=== PATIENT | female | born 1980 | race Caucasian/White ===

== ENCOUNTER 2021-03-25 17:00 | Emergency (ER) | payer OTHER, BC ==
[2021-03-25] MEDS ORDERED: Bacitracin Oint 1 GM U/D Packet TOP ONE (17:13)
[2021-03-25] MEDS ORDERED: Diphtheria,Pertussis(Acell),Tetanus Vaccine 0.5 ML Syringe IM ONE (17:13)
--- NOTE | 2021-03-25 17:16 | EDM.PDOC ---
ED HPI GENERAL MEDICAL PROBLEM - General Chief Complaint: Burn Stated Complaint: burn Time Seen by Provider: 03/25/21 17:50 Source of Information: Reports: Patient History Limitations: Reports: No Limitations - History of Present Illness INITIAL COMMENTS - FREE TEXT/NARRATIVE: 10x6cm chemical burn left inner forearm from [place]. Working at [employer] when this spilled onto patient's arm. Rinsed with water on site. - Related Data Allergies Allergy/AdvReac Type Severity Reaction Status Date / Time No Known Allergies Allergy Verified 03/25/21 17:16 Home Meds: Home Meds Multivitamin with Minerals [Multiple Vitamin] 1 cap PO DAILY 03/25/21 [History] Armour-3/DHA/Epa/Fish Oil [Fish Oil 1,000 mg Softgel] 1 cap PO DAILY 03/25/21 [History] Vit C/Dietary Supplement No.18 [Red Wine Extract Plus] 1 cap PO DAILY 03/25/21 [History] Past Medical History - Past Health History Medical/Surgical History: Denies Medical/Surgical History ED ROS GENERAL - Review of Systems Review Of Systems: See Below Constitutional: Reports: No Symptoms HEENT: Reports: No Symptoms Respiratory: Reports: No Symptoms Cardiovascular: Reports: No Symptoms GI/Abdominal: Reports: No Symptoms Musculoskeletal: Reports: No Symptoms Skin: Reports: Burn(s) (left forearm) Neurological: Reports: No Symptoms Psychiatric: Reports: No Symptoms ED EXAM, GENERAL - Physical Exam Exam: See Below Exam Limited By: No Limitations General Appearance: Alert, WD/WN, No Apparent Distress Eye Exam: Bilateral Eye: EOMI, PERRL Ears: Hearing Grossly Normal Nose: No: Nasal Deformity, Nasal Swelling, Nasal Drainage Throat/Mouth: Normal Lips, Normal Voice, No Airway Compromise Head: Atraumatic, Normocephalic Neck: Normal Inspection, Supple, Non-Tender, Full Range of Motion Respiratory/Chest: No Respiratory Distress, Lungs Clear Cardiovascular: Normal Peripheral Pulses Extremities: Normal Range of Motion, Normal Capillary Refill Neurological: Alert, Oriented, Normal Cognition, Normal Gait, No Motor/Sensory Deficits Psychiatric: Normal Affect, Normal Mood Skin Exam: Warm, Dry, Other (10 x 6cm area of light pink discoloration left forearm/well demarcated. No weeping/crusting. ) Course - Vital Signs Last Recorded V/S: Last Vital Signs Temp 36.8 C 03/25/21 17:11 Pulse 90 03/25/21 17:11 Resp 20 03/25/21 17:11 BP 99/70 03/25/21 17:11 Pulse Ox 99 03/25/21 17:11 - Orders/Labs/Meds Meds: Medications Discontinued Medications Generic Name Dose Route Start Last Admin Trade Name Sushil PRN Reason Stop Dose Admin Bacitracin 1 dose 03/25/21 17:13 03/25/21 17:29 Bacitracin Oint 1 Gm U/D Packet TOP 03/25/21 17:14 1 dose ONETIME ONE Administration Diphtheria/Tetanus/Acell Pertussis 0.5 ml 03/25/21 17:13 03/25/21 17:26 Diphtheria,Pertussis(Acell),Tetanus Vaccine 0.5 Ml Syringe IM 03/25/21 17:14 0.5 ml .ONCE ONE Administration - Re-Assessments/Exams Free Text/Narrative Re-Assessment/Exam: 03/26/21 05:33 Chemical burn left inner forearm. Poison control recommended soaking in NS. Patient soaked for over a half an hour. No observed change in burn over that time. Bacitracin and nonstick dressing applied. Burn care reviewed. Patient wanted to go back to work. To return as needed prn significant worsening of burn or other problems/concerns/signs infection. Departure - Departure Time of Disposition: 17:45 Disposition: Home, Self-Care 01 Condition: Good Clinical Impression: Chemical burn - Discharge Information *PRESCRIPTION DRUG MONITORING PROGRAM REVIEWED*: Not Applicable *COPY OF PRESCRIPTION DRUG MONITORING REPORT IN PATIENT COLBY: Not Applicable Instructions: Chemical Burn, Adult Referrals: PCP,Unknown [Primary Care Provider] - Forms: ED Department Discharge Additional Instructions: Wound care as we reviewed. Keep area protected while it heals. Daily Bacitracin in mornings and evenings. Apply nonstick dressing on top of the burn and secure with Coban (vet wrap) to keep ointment in place and protect burn as it heals. Recommend recheck of burn with your own clinic on Wednesday of this week. Follow up as needed if there are any concerns such as signs of infection.
== END 2021-03-25 17:52 | disposition home or self-care (01) ==
LOC: LL.ED 17:00
DX: T65.91XA Toxic effect of unspecified substance, accidental (unintentional), initial encounter (principal); T22.412A Corrosion of unspecified degree of left forearm, initial encounter; Z23 Encounter for immunization
CPT/HCPCS: 16000; 16020; 90471; 90715; 99283; 99283-25

== ENCOUNTER 2021-05-28 18:08 | Emergency (ER) | payer OTHER, BC ==
[2021-05-28 18:21] VITALS: BP 108/68; PULSE 79
[2021-05-28] MEDS: Acetaminophen 500 MG Tab PO ONE (18:48)
== END 2021-05-28 20:25 | disposition home or self-care (01) ==
LOC: LL.ED 18:08
DX: S50.02XA Contusion of left elbow, initial encounter (principal); W22.09XA Striking against other stationary object, initial encounter; Y99.0 Civilian activity done for income or pay
CPT/HCPCS: 73080-LT; 81025; 99283-25; A9270-GY